=== PATIENT | female | born 2000 | race Caucasian/White ===

== ENCOUNTER 2022-01-11 08:18 | Emergency (ER) | payer MEDICAID ==
[~2022-01-11] VITALS: Ht 167.6 cm; Wt 81.8 kg
[2022-01-11] MEDS ORDERED: acetaminophen 325mg tablet PO ONE (08:50)
[2022-01-11] MEDS ORDERED: ibuprofen tablet 400 MG TABLET PO ONE (08:50)
[2022-01-11] MEDS ORDERED: ondansetron 4mg rapidly disintigrating tab PO ONE (08:50)
[2022-01-11] MEDS ORDERED: ONDA8TAB13 PO (10:03)
[2022-01-11 10:06] VITALS: BP 118/88
== END 2022-01-11 10:14 | disposition home or self-care (01) ==
LOC: ER 08:20
DX: U07.1 COVID-19 (principal)
CPT/HCPCS: 71045; 87081; 87635; 87880; 93005; 99285; C9803